=== PATIENT | male | born 1950 | race Caucasian/White ===

== ENCOUNTER 2018-06-30 09:52 | Emergency (ER) | payer MEDICARE ==
[~2018-06-30 09:52] MED LIST: ALBU8.5H IH; GUAI-489 PO; NO ROUTINE MEDS; PER PO; PRED20TA6 PO; TAMS0.4C25 PO
[2018-06-30 10:55] LABS: PLATELET COUNT, AUTOMATED 242 K/uL (150-450)
--- NOTE | 2018-06-30 10:58 | EKG ---
FACILITY: [facility] [place] PATIENT NAME: JASPAL ALEXANDRA : [id number] MR: [id number] V: [id number] EXAM DATE: ORDERING PHYSICIAN: MELITON BANKS TECHNOLOGIST: XAVIER Test Reason : SWOLLEN FEET Blood Pressure : / mmHG Vent. Rate : 073 BPM Atrial Rate : 073 BPM P-R Int : 154 ms QRS Dur : 092 ms QT Int : 404 ms P-R-T Axes : 058 -01 031 degrees QTc Int : 445 ms Normal sinus rhythm Normal ECG When compared with ECG of 23-SEP-2015 09:48, Previous ECG has undetermined rhythm, needs review Questionable change in QRS axis Confirmed by MISAEL ANDREWS ([id number]) on 06/30/2018 7:39:42 PM Referred By: JOCELYN Confirmed By:MISAEL ANDREWS
[2018-06-30] MEDS ORDERED: FURO20TA19 PO (11:19)
--- NOTE | 2018-06-30 11:20 | ER Report ---
History and Physical Time Seen By MD: 10:12 Hx. of Stated Complaint: Pt states he has had increasing swelling of feed ascending up to calves x 3 days. Denies pain. Admits to recent SOB. HPI/ROS CHIEF COMPLAINT: B/L lateral leg swelling HISTORY OF PRESENT ILLNESS: Patient is a 68-year-old male who has not seen a primary care provider and years presents to the emergency department for evaluation of bilateral lower extremity swelling that has gotten worse over the past 3 days. He denies chest pain or pressure. He states he has no significant medical history. He denies having similar episodes in the past. REVIEW OF SYSTEMS: Respiratory: No cough, no dyspnea. Cardiovascular: No chest pain, no palpitations. Gastrointestinal: No vomiting, no abdominal pain. Musculoskeletal: No back pain. The swelling Allergies: Coded Allergies: No Known Allergies (Verified Allergy, Mild, 06/30/18) Home Meds Discontinued Scripts Tamsulosin Hcl (FLOMAX) 0.4 Mg Cap.er.24h, 0.4 MG PO QHS for prostate relaxation, #30 CAP Prov:JAMIE MYERS DO 01/30/17 Past Medical/Surgical History Benign prostatic hypertrophy Hx Smoking: Yes Smoking Status: Current: Every Day Smoker Hx Substance Use Disorder: Yes (in the past) Hx Alcohol Use: No Constitutional Vital Sign - Last 24 Hours 06/30/18 10:00 Temp 97.8 Pulse 76 Resp 16 B/P (MAP) 180/100 Pulse Ox 94 O2 Delivery Room Air Physical Exam General Appearance: The patient is alert, has no immediate need for airway protection and no current signs of toxicity. Eyes: Pupils equal and round no injection. Respiratory: Chest is non tender, lungs are clear to auscultation. Cardiac: regular rate and rhythm [ ] Gastrointestinal: Abdomen is soft and non tender, no masses, bowel sounds normal. Musculoskeletal: Neck: Neck is supple and non tender. Extremities have full range of motion and are non tender. Skin: Ichthyosis bilateral lower extremities along with 1-2+ nonpitting edema bilaterally Medical Decision Making Data Points Result Diagram: 06/30/18 1030 06/30/18 1030 Laboratory Hematology Test 06/30/18 10:30 Red Blood Count 4.30 M/uL (4.00-5.60) Mean Corpuscular Volume 97.0 fL (80.0-96.0) Mean Corpuscular Hemoglobin 33.1 pg (26.0-33.0) Mean Corpuscular Hemoglobin Concent 34.1 g/dL (32.0-36.0) Red Cell Distribution Width 13.2 % (11.5-14.5) Mean Platelet Volume 7.0 fL (7.2-11.1) Neutrophils (%) (Auto) 66.6 % (39.4-72.5) Lymphocytes (%) (Auto) 20.1 % (17.6-49.6) Monocytes (%) (Auto) 10.4 % (4.1-12.4) Eosinophils (%) (Auto) 1.6 % (0.4-6.7) Basophils (%) (Auto) 1.3 % (0.3-1.4) Nucleated RBC Relative Count (auto) 0.0 /100WBC Neutrophils # (Auto) 3.9 K/uL (2.0-7.4) Lymphocytes # (Auto) 1.2 K/uL (1.3-3.6) Monocytes # (Auto) 0.6 K/uL (0.3-1.0) Eosinophils # (Auto) 0.1 K/uL (0.0-0.5) Basophils # (Auto) 0.1 K/uL (0.0-0.1) Nucleated RBC Absolute Count (auto) 0.00 K/uL Sodium Level 140 mmol/L (137-145) Potassium Level 3.7 mmol/L (3.5-5.0) Chloride Level 100 mmol/L (98-107) Carbon Dioxide Level 27 mmol/L (22-30) Blood Urea Nitrogen 9 mg/dl (9-21) Creatinine 0.80 mg/dl (0.66-1.25) Glomerular Filtration Rate Calc > 60.0 Random Glucose 103 mg/dl (75-110) Calcium Level 9.0 mg/dl (8.4-10.2) Total Bilirubin 0.5 mg/dl (0.2-1.3) Aspartate Amino Transf (AST/SGOT) 20 U/L (0-35) Alanine Aminotransferase (ALT/SGPT) 17 U/L (0-56) Alkaline Phosphatase 98 U/L (0-126) Total Protein 7.3 g/dl (6.3-8.2) Albumin 4.1 g/dl (3.5-5.0) Chemistry Test 06/30/18 10:30 White Blood Count 5.9 k/uL (4.5-11.0) Red Blood Count 4.30 M/uL (4.00-5.60) Hemoglobin 14.2 g/dL (14.0-18.0) Hematocrit 41.7 % (42.0-52.0) Mean Corpuscular Volume 97.0 fL (80.0-96.0) Mean Corpuscular Hemoglobin 33.1 pg (26.0-33.0) Mean Corpuscular Hemoglobin Concent 34.1 g/dL (32.0-36.0) Red Cell Distribution Width 13.2 % (11.5-14.5) Platelet Count 242 K/uL (150-450) Mean Platelet Volume 7.0 fL (7.2-11.1) Neutrophils (%) (Auto) 66.6 % (39.4-72.5) Lymphocytes (%) (Auto) 20.1 % (17.6-49.6) Monocytes (%) (Auto) 10.4 % (4.1-12.4) Eosinophils (%) (Auto) 1.6 % (0.4-6.7) Basophils (%) (Auto) 1.3 % (0.3-1.4) Nucleated RBC Relative Count (auto) 0.0 /100WBC Neutrophils # (Auto) 3.9 K/uL (2.0-7.4) Lymphocytes # (Auto) 1.2 K/uL (1.3-3.6) Monocytes # (Auto) 0.6 K/uL (0.3-1.0) Eosinophils # (Auto) 0.1 K/uL (0.0-0.5) Basophils # (Auto) 0.1 K/uL (0.0-0.1) Nucleated RBC Absolute Count (auto) 0.00 K/uL Glomerular Filtration Rate Calc > 60.0 Calcium Level 9.0 mg/dl (8.4-10.2) Total Bilirubin 0.5 mg/dl (0.2-1.3) Aspartate Amino Transf (AST/SGOT) 20 U/L (0-35) Alanine Aminotransferase (ALT/SGPT) 17 U/L (0-56) Alkaline Phosphatase 98 U/L (0-126) Total Protein 7.3 g/dl (6.3-8.2) Albumin 4.1 g/dl (3.5-5.0) EKG/Imaging EKG Interpretation EKG shows normal sinus rhythm with a ventricular rate of 73 bpm Monitor Interpretation: Normal Sinus Rhythm ED Course/Re-evaluation ED Course Patient with bilateral mild to moderate peripheral edema hypertensive on exam. Patient also hypertensive. I will recommend patient follow up with primary care provider for further blood pressure monitoring; will do one week of Lasix 20 mg daily Decision to Disposition Date: Jun 30, 2018 Decision to Disposition Time: 11:16 Depart Departure Latest Vital Signs Vital Signs Date Time Temp Pulse Resp B/P (MAP) Pulse Ox O2 Delivery O2 Flow Rate FiO2 06/30/18 10:00 97.8 76 16 180/100 94 Room Air Impression: Primary Impression: Peripheral edema Condition: Improved Disposition: HOME OR SELF-CARE Referrals: MISAEL PALACIO MD Call to schedule a follow-up appointment in the next 30-60 days for reevaluation of her blood pressure and to establish care with a primary care provider New Scripts Furosemide (LASIX) 20 Mg Tablet 1 TAB PO QDAY for 7 Days, #7 TAB 0 Refills Prov: MELITON BANKS MD 06/30/18 Patient Instructions: Hypertension (GEN), Leg Edema (ED) MELITON BANKS MD Jun 30, 2018 11:20
[2018-06-30 11:30] VITALS: BP 164/90
== END 2018-06-30 11:36 | disposition home or self-care (01) ==
LOC: ER 10:17
DX: R60.9 Edema, unspecified (principal)
CPT/HCPCS: 82040; 82247; 82310; 82374; 82435; 82565; 82947; 84075; 84132; 84155; 84295; 84450; 84460; 84520; 85025; 93005; 99283

== ENCOUNTER → 2018-07-07 | Outpatient (CLI) | payer MEDICARE ==
[~2018-07-07] MED LIST changes: +FURO20TA19 PO
== END ==
LOC: LAB 15:47
PROVIDERS: ATTEND Nurse Practitioner Family
DX: R60.9 Edema, unspecified (principal); Z72.0 Tobacco use; I10 Essential (primary) hypertension
CPT/HCPCS: 36415; 82040; 82247; 82310; 82374; 82435; 82565; 82947; 83880; 84075; 84132; 84155; 84295; 84450; 84460; 84520